=== PATIENT | female | born 1985 | race Caucasian/White ===

== ENCOUNTER 2024-03-28 19:47 | Emergency (ER) | payer BC, SELFPAY ==
[2024-03-28 19:49] VITALS: BP 152/98; PULSE 105; RESP 16; TEMP 37; O2SAT 98; BMI 38.3
--- NOTE | 2024-03-28 20:08 | CT_ITS ---
PROCEDURE INFORMATION: Exam: CT Neck With Contrast Exam date and time: 03/28/2024 9:20 PM Age: 38 years old Clinical indication: Throat pain; Additional info: Right submandibular swelling and horse voice TECHNIQUE: Imaging protocol: Computed tomography of the neck with contrast. Radiation optimization: All CT scans at this facility use at least one of these dose optimization techniques: automated exposure control; mA and/or kV adjustment per patient size (includes targeted exams where dose is matched to clinical indication); or iterative reconstruction. Contrast material: ISOVUE; Contrast volume: 75 ml; Contrast route: IV; COMPARISON: No relevant prior studies available. FINDINGS: Salivary glands: Normal. Glands are normal in size. Oral cavity: There are no calcific densities along the course of the sublingual duct. Pharynx: Unremarkable. No significant tonsillar enlargement. Prevertebral and retropharyngeal spaces: Unremarkable. Larynx: Unremarkable. Epiglottis is normal. Thyroid: Normal. No enlarged or calcified nodules. Trachea: Visualized trachea is unremarkable. Lungs: Unremarkable as visualized. Lymph nodes: Multiple reactive right level 2 and level 3 nodes. Bones/joints: Unremarkable. No acute fracture. Soft tissues: Right submandibular heterogeneous enhancement measuring 2.5 x 2.5 x 1.7 cm, having mass effect on the right digastric muscle with [id number] deviation. There is inflammatory fluid effacing the normal fatty soft tissue planes. IMPRESSION: Right submandibular heterogeneous enhancement measuring 2.5 x 2.5 x 1.7 cm, having mass effect on the right digastric muscle with [id number] deviation. There is inflammatory fluid effacing the normal fatty soft tissue planes. There are no calcific densities along the course of the sublingual duct. Findings suggest infectious or inflammatory process less likely neoplastic process or vascular lesion. Recommend otolaryngology consultation and further evaluation with contrasted MRI.
--- NOTE | 2024-03-28 20:13 | [facility].EDGENADL ---
Discharge Plan Disposition Patient Disposition: Home, Self-Care Referrals Follow up/Referrals: Hesham Rollins III, MD [Staff Physician] - See instructions Brittny Gan PA [Primary Care Provider] - See instructions Activity Restrictions/Add. Instructions Additional Instructions/Restrictions: You have evidence of submandibular gland inflammation with some mild surrounding inflammatory fluid. No obvious drainable fluid collection such as an abscess. Given the fact that you had preceding and ongoing viral symptoms is almost certainly a viral infectious process in your submandibular glands known as viral sialoadenitis. There was no stone or definitive evidence of a bacterial or purulent infection. Also no evidence of an upper airway obstruction or esophageal obstruction. If you have any difficulty breathing and/or swallowing please return to the emergency department otherwise please closely follow-up with ENT to ensure resolution of your symptoms. You have been given a referral to Dr. Rollins you may call tomorrow for next available appointment with Dr. Rollins or anyone in his clinic. Clinical Impressions Clinical Impression: Acute viral sialadenitis, Submandibular swelling, Hoarseness of voice Print Language Print Language: Portuguese Discharge ED Provider: Rod Man General Adult HPI General Chief complaint: PAIN Stated complaint: SOA,swollen neck Time Seen by Provider: 03/28/24 19:58 Mode of Arrival: Ambulatory Source of Information: Patient and Relative Limitations: No Limitations Description of Symptoms (Recalled from ER Triage Doc. by RN): Pt presents to ED for throat swelling. Pt was dx with pneumonia on 03/25/24 and has been taking Doxy and Pearls. Pt states the swelling started around 1330 today. Pt states she's not SOA but it is hard to swallow. Pt is A&O*4 and family is bedside. History of Present Illness HPI narrative: Patient is a 38-year-old female who presents today with right submandibular swelling and hoarse voice over the last few days. States she has been sick since around Claudia time she recently had surgery in January for her Crohn's disease and she was on Rinvoq but had stopped that and restarted it at the beginning of March. She states she went to an urgent treatment clinic where she was given a clinical diagnosis without a chest x-ray of pneumonia and started on doxycycline and Tessalon Perles. Since that time she has had increasing right submandibular swelling difficulty swallowing no difficulty breathing as well as a hoarse voice. She also continues to have some cough. No fevers or chills. Related Data Allergies Allergy/AdvReac Type Severity Reaction Status Date / Time No Known Allergies Allergy Verified 03/28/24 20:14 [facility] Disclaimer: The information contained in this section may have been updated after the patient was seen, as this information can be updated by other users. Social History Smoking Status: Never smoker alcohol intake: never current occupational status: other Travel in the last 8 weeks: None ROS Obtained: Yes All systems reviewed & no additional complaints except as documented Physical Exam General General appearance: other (Hoarse voice) ENT ENT exam: Present normal exam, normal oropharynx and other; Absent mucous membranes dry Neck Neck exam: Present other (Right submandibular fullness does not cross the midline is tender to palpation no erythema or fluctuance noted no significant lymphadenopathy noted) Respiratory Respiratory exam: Present normal lung sounds bilaterally Cardiovascular Cardiovascular exam: Present regular rate Neurological Exam Neurological exam: Present alert and oriented X3 Medical Decision Making Medical Records Screening: Per USPSTF and CDC recommendations, given the prevalence of disease in our region, it is our hospital?s policy to screen for HIV and viral Hepatitis for all patients aged 18 and over and those with ongoing risk factors. J Luis Inquiry Pt receiving controlled substance: No Vital Signs: 03/28/24 19:49 03/28/24 21:45 03/28/24 22:15 Temperature 98.6 F Temperature Source Oral Pulse Rate 85 82 Pulse Rate [Left] 105 H Respiratory Rate 16 Blood Pressure 141/76 H 134/79 Blood Pressure [Right Arm] 152/98 H Blood Pressure Mean [Right Arm] 116 02 Sat by Pulse Oximetry 98 97 97 Oxygen Delivery Method Room Air Lab Data Lab results reviewed: Yes I reviewed the patient's lab results. Lab Results 03/28/24 20:18: WBC 10.0, RBC 4.68, Hgb 11.9 L, Hct 37.7, MCV 80.6 L, MCH 25.4 L, MCHC 31.6 L, RDW 14.1, Plt Count 484 H, MPV 9.5, Neut % (Auto) 54.9, Lymph % (Auto) 33.8, [place] % (Auto) 9.2, Eos % (Auto) 1.6, Baso % (Auto) 0.1, Neut # (Auto) 5.5, Lymph # (Auto) 3.4, [place] # (Auto) 0.9, Eos # (Auto) 0.2, Baso # (Auto) 0.0, Sodium 136, Potassium 3.1 L, Chloride 105, Carbon Dioxide 25, Anion Gap 9.1, BUN 9, Creatinine 0.60, Estimated Creat Clear 173, Estimated GFR 112, Est GFR ( Amer) 135, Glucose 94, Calcium 9.2, Total Bilirubin 0.2, AST 22, ALT 23, Alkaline Phosphatase 107, Total Protein 7.1, Albumin 3.9, Globulin 3.2, Albumin/Globulin Ratio 1.2, Serum HCG, Qual Negative, Monoscreen Negative 03/28/24 20:26: SARS-CoV-2 (PCR) Not detected, Influenza A Untype (PCR) Not detected, Influenza Type B (PCR) Not detected 03/28/24 20:18 03/28/24 20:18 Orders (Tests/Meds): ED MEDICATIONS Discontinued Medications Generic Name Dose Route Start Last Admin Trade Name Freq PRN Reason Stop Dose Admin Dexamethasone Sodium Phosphate 10 mg 03/28/24 20:08 03/28/24 20:17 Dexamethasone 4mg/Ml 1ml Vial IV 03/28/24 20:09 10 mg ONCE ONE Administration Sodium Chloride 1,000 mls @ 999 mls/hr 03/28/24 20:15 03/28/24 20:17 Sod Chlor 0.9% 1000ml Bag IV 03/28/24 21:15 999 mls/hr .Q1H1M BRI Administration Iopamidol 75 ml 03/28/24 21:20 03/28/24 21:22 Iopamidol-370 (76%);100ml Bottle IV 03/28/24 21:21 75 ml ONCE ONE Administration Ketorolac Tromethamine 15 mg 03/28/24 20:19 03/28/24 20:21 Ketorolac 30mg/Ml Vial IV 03/28/24 20:20 15 mg ONCE ONE Administration Sodium Chloride 10 ml 03/28/24 21:20 03/28/24 21:22 Sodium Chloride 0.9% 10ml Syr (Rad Only) IV 03/28/24 21:21 10 ml ONCE ONE Administration ORDERS Category Date Time Status CT soft tissue neck w con Stat Cat Scan 03/28/24 20:08 Completed CBC w/Auto Diff [Complete Blood Count Auto Diff] Stat Lab 03/28/24 20:18 Completed CMP [Comprehensive Metabolic Panel] Stat Lab 03/28/24 20:18 Completed HCG Qualitative, Serum Stat Lab 03/28/24 20:18 Completed Monoscreen (Rapid) Stat Lab 03/28/24 20:18 Completed Rapid PCR Covid and Flu A/B Stat Lab 03/28/24 20:26 Completed Medical Decision Narrative: 38-year-old with above history and physical with significant submandibular and hoarse voice. This is most likely viral she does have localized swelling which seems to be confined to the submandibular gland most likely sialoadenitis but could be an abscess or reactive lymphadenopathy or cellulitis or malignancy etc. Will get a contrasted CT scan in addition to viral etiology testing and administer IV fluids as well as dexamethasone. CT scan was performed I personally interpreted which shows localized submandibular inflammatory changes with soft tissue edema surrounding this with some mass effect. This is likely viral sialoadenitis with the fact that she has recent and ongoing viral symptoms. No purulence in her mouth no evidence of sialolithiasis. No drainable fluid collection. Patient has no stridor no difficulty with breathing and no difficulty swallowing at the moment. She does have some pain with swallowing but states that after the steroids it has improved. She has been given close return precautions if she has any difficulty with breathing and particularly or swallowing. She has been advised to follow-up with ENT early next week to ensure resolution of her symptoms. I do not believe that this is bacterial will not change antibiotics. She has been made aware of this and will follow-up closely outpatient. Otherwise supportive care will be ongoing for her viral symptoms. She was discharged in stable condition peer Critical Care Critical Care Time Critical Care Time: No
[2024-03-28] MEDS: DEXAMETHASONE 4MG/ML 1ML VIAL 10 MG IV (20:17)
[2024-03-28] MEDS: 0.9 % SODIUM CHLORIDE 1000ML 1,000 ML 999 ML IV (20:17)
[2024-03-28] MEDS: KETOROLAC 30MG/ML VIAL 15 MG IV (20:21)
[2024-03-28 20:31] LABS: Coronavirus 19, PCR Not Detected (NotDetected); Influenza A, PCR Not Detected (NotDetected); Influenza B, PCR Not Detected (NotDetected)
[2024-03-28 20:31] LABS: Basophils % 0.1 % (0.1-2.0); Eosinophils # 0.2 K/mm3 (0.0-0.4); Eosinophils % 1.6 % (0.1-12.0); Hematocrit 37.7 % (37.0-47.0); Hemoglobin 11.9 g/dL (12.2-16.2); Lymphocytes # 3.4 K/mm3 (0.7-4.5); Lymphocytes % 33.8 % (10-50); Mean Corpuscular HGB Conc 31.6 g/dL (31.8-35.4); Mean Corpuscular Hemoglobin 25.4 pg (27.0-31.2); Mean Corpuscular Volume 80.6 fl (81-99); Mean Platelet Volume 9.5 fl (7.4-10.4); Monocytes # 0.9 K/mm3 (0.1-1.0); Monocytes % 9.2 % (1.7-9.3); Neutrophils # 5.5 K/mm3 (1.8-7.8); Neutrophils % 54.9 % (37.0-80.0); Platelet Count 484 K/mm3 (142-424); Red Blood Count 4.68 M/mm3 (4.20-5.40); Red Cell Distribution Width 14.1 % (11.5-17.5)
[2024-03-28 20:42] LABS: Monoscreen (Rapid) Negative (Negative)
[2024-03-28 20:50] LABS: Alanine Aminotransferase 23 U/L (12-78); Albumin Level 3.9 g/dl (3.5-5.0); Albumin/Globulin Ratio 1.2 (1.1-1.8); Alkaline Phosphatase 107 U/L (38-126); Anion Gap 9.1 mEq/L (5-15); Aspartate Amino Transferase 22 U/L (14-36); Bilirubin,Total 0.2 mg/dl (0.2-1.3); Blood Urea Nitrogen 9 mg/dl (7-17); Calcium 9.2 mg/dl (8.4-10.2); Carbon Dioxide 25 mmol/L (22.0-30.0); Chloride 105 mmol/L (98-107); Creatinine Clearance Estimated 173 mL/min (50-200); Estimated Glomerular Filt Rate 112 ml/min (>60); GFR (African American) 135 ML/MIN (>60); Globulin 3.2 g/dL (1.3-3.2); Glucose 94 mg/dl (74-100); Potassium 3.1 mmoL/L (3.5-5.1); Sodium 136 mmol/L (136-145); Total Protein,Serum 7.1 g/dl (6.3-8.2)
[2024-03-28 21:06] LABS: HCG Qualitative, Serum Negative (Negative)
[2024-03-28] MEDS: SODIUM CHLORIDE 0.9% 10ML SYR (RAD ONLY) 10 ML IV (21:22)
[2024-03-28] MEDS: IOPAMIDOL-370 (76%);100ML BOTTLE 75 ML IV (21:22)
[2024-03-28 21:45] VITALS: BP 141/76; PULSE 85; O2SAT 97
[2024-03-28 22:15] VITALS: BP 134/79; PULSE 82; O2SAT 97
[2024-03-28 22:35] VITALS: BP 134/79; PULSE 98; RESP 18; TEMP 36.8; O2SAT 98
== END 2024-03-28 22:37 | disposition home or self-care (01) ==
PROVIDERS: Emergency Provider Student in an Organized Health Care Education/Training Program; PCP Physician Assistant
DX: K11.21 Acute sialoadenitis (principal); R49.0 Dysphonia; R22.0 Localized swelling, mass and lump, head; R13.10 Dysphagia, unspecified; R47.89 Other speech disturbances; R05.9 Cough, unspecified
CPT/HCPCS: 70491; 80053; 84703; 85025; 86318; 87636; 96361; 96374; 96375; 99285; J1100; J1885; J7030; Q9967